=== PATIENT | female | born 1970 | race Caucasian/White ===

== ENCOUNTER 2018-01-23 17:30 | Emergency (ER) | payer MEDICAID ==
[2018-01-23] MEDS: HYDROCODONE/APAP (5/325) TAB PO (19:26)
[2018-01-23] MEDS: NAPROXEN 500 MG TAB PO (19:26)
[2018-01-23 19:54] LABS: ADD UMIC YES; UR AMORPHOUS CRYSTAL MANY /HPF (NONE SEEN); UR ASCORBIC ACID NEGATIVE (NEGATIVE); UR BACTERIA FEW /HPF (NONE SEEN); UR BILIRUBIN (Dip) NEGATIVE (NEGATIVE); UR BLOOD (Dip) 1+ mg/dL (NEGATIVE); UR CLARITY CLOUDY (CLEAR); UR COLOR YELLOW (YELLOW); UR GLUCOSE (Dip) NEGATIVE (NEGATIVE); UR KETONES (Dip) NEGATIVE (NEGATIVE); UR LEUKOCYTE ESTERASE (Dip) NEGATIVE Leu/ul (NEGATIVE); UR NITRITE (Dip) NEGATIVE (NEGATIVE); UR RBC 8 /HPF (0-5); UR SPECIFIC GRAVITY (Dip) 1.011 (1.003-1.030); UR SQUAMOUS EPITHELIAL CELL MODERATE /HPF (FEW); UR TOTAL PROTEIN (Dip) NEGATIVE (NEGATIVE); UR UROBILINOGEN (Dip) NEGATIVE (NEGATIVE); UR WBC 10 /HPF (0-5)
== END 2018-01-23 20:30 | disposition home or self-care (01) ==
LOC: FTE 17:30
DX: M54.5 Low back pain (principal); N30.00 Acute cystitis without hematuria
CPT/HCPCS: 81001; 99283